=== PATIENT | female | born 1945 | race Asian ===

== ENCOUNTER 2016-10-18 08:41 | Emergency (ER) | payer OTHER ==
[~2016-10-18] VITALS: Ht 152.4 cm; Wt 50.0 kg
[~2016-10-18 08:41] MED LIST: AMLO-145 PO; BENA10TA48 PO; CLOP75TA27 PO; METF500T4 PO; OMEP20CA16 PO; ONDA4TAB14 PO; RANI25TA PO; SIMV5TAB50 PO
[2016-10-18 08:43] VITALS: Ht 152.4 cm; Wt 50.0 kg
[2016-10-18] MEDS ORDERED: morphine 4 MG/ML VIAL IV STA (09:01)
[2016-10-18] MEDS ORDERED: ONDANSETRON 4 MG INJ IV STA (09:01)
[2016-10-18 09:22] LABS: ADD SCAN DIFF NO
[2016-10-18 09:27] LABS: ADD UMIC YES; BASOPHILS % 0.2 % (0.0-2.0); EOSINOPHILS # 0.1 10^3/ul (0.0-0.5); EOSINOPHILS % 1.6 % (0.0-7.0); HEMOGLOBIN 14.4 g/dl (12.0-16.0); LYMPHOCYTES # 2.7 10^3/ul (0.8-2.9); LYMPHOCYTES % 42.7 % (15.0-51.0); MEAN CORPUSCULAR HEMOGLOBIN 30.4 pg (29.0-33.0); MEAN CORPUSCULAR HGB CONC 34.3 g/dl (32.0-37.0); MEAN CORPUSCULAR VOLUME 88.8 fl (82.0-101.0); MEAN PLATELET VOLUME 9.1 fl (7.4-10.4); MONOCYTE # 0.4 10^3/ul (0.3-0.9); MONOCYTES % 6.3 % (0.0-11.0); NEUTROPHIL # 3.1 10^3/ul (1.6-7.5); NEUTROPHILS % 48.9 % (39.0-77.0); PLATELET COUNT 334 10^3/UL (140-415); RED BLOOD COUNT 4.73 10^6/ul (4.20-5.40); RED CELL DISTRIBUTION WIDTH 12.9 % (11.5-14.5); UR ASCORBIC ACID NEGATIVE (NEGATIVE); UR BILIRUBIN (Dip) NEGATIVE (NEGATIVE); UR BLOOD (Dip) 2+ mg/dL (NEGATIVE); UR CLARITY CLEAR (CLEAR); UR COLOR COLORLESS (YELLOW); UR GLUCOSE (Dip) NEGATIVE (NEGATIVE); UR KETONES (Dip) NEGATIVE (NEGATIVE); UR LEUKOCYTE ESTERASE (Dip) NEGATIVE Leu/ul (NEGATIVE); UR NITRITE (Dip) NEGATIVE (NEGATIVE); UR RBC 1 /HPF (0-5); UR SPECIFIC GRAVITY (Dip) 1.004 (1.003-1.030); UR TOTAL PROTEIN (Dip) NEGATIVE (NEGATIVE); UR UROBILINOGEN (Dip) NEGATIVE (NEGATIVE); WHITE BLOOD COUNT 6.3 10^3/ul (4.8-10.8)
[2016-10-18] MEDS ORDERED: PANTOPRAZOLE 40 MG INJ IV ONE (09:30)
[2016-10-18] MEDS ORDERED: GABA100C14 PO (09:37)
[2016-10-18 09:47] LABS: ALANINE AMINOTRANSFERASE 27 IU/L (13-69); ALBUMIN 5.3 g/dl (3.3-4.9); ALBUMIN/GLOBULIN RATIO 1.55; ALKALINE PHOSPHATASE 110 IU/L (42-121); ANION GAP 24 (8-16); ASPARTATE AMINO TRANSFERASE 28 IU/L (15-46); BILIRUBIN,INDIRECT 0.1 mg/dl (0-1.1); BILIRUBIN,TOTAL 0.1 mg/dl (0.2-1.3); BLOOD UREA NITROGEN 8 mg/dl (7-20); CALCIUM 10.2 mg/dl (8.4-10.2); CARBON DIOXIDE 24 mmol/L (21-31); CHLORIDE 100 mmol/L (97-110); CREATININE 0.63 mg/dl (0.44-1.00); GLUCOSE 158 mg/dl (70-220); POTASSIUM 3.4 mmol/L (3.5-5.1); SODIUM 145 mmol/L (135-144); TOTAL PROTEIN 8.7 g/dl (6.1-8.1)
--- NOTE | 2016-10-18 10:04 | RADRPT ---
PROCEDURE: US Abdomen Limited . CLINICAL INDICATION: Abdominal pain TECHNIQUE: Multiple real-time images were acquired of the patient's right upper quadrant abdomen u tilizing a high resolution transducer. COMPARISON: None FINDINGS: The liver measures 13.1 cm and demonstrates a normal echogenicity. Simple-appearing cysts are identi fied in the liver. The largest measures up to approximately 3.2 cm in the right liver. The gallbla dder has been removed. The common bile duct measures 9.4 mm in diameter. The visualized portions of the proximal pancreas are unremarkable. The tail of the pancreas is not well visualized. Antegrade flow is seen in the portal vein. Right kidney measures 9.5 cm. Right kidney demonstrates a normal echogenicity. No hydronephrosis, masses or stones are noted. IMPRESSION: Simple-appearing liver cysts. Status post cholecystectomy. Common bile duct that measures at the upper limit of normal after cholecystectomy. Tail of the pancreas not well visualized. If characterization of this structure is needed repeat exa m or CT/MRI is recommended. RPTAT: AA .Scott Arenas MD, Date Time Electronically viewed and signed by .Scott Arenas MD, on 10/18/2016 10:04 .P/
[2016-10-18 10:10] LABS: TROPONIN-I < 0.012 ng/ml (0.00-0.12)
--- NOTE | 2016-10-18 10:11 | RADRPT ---
PROCEDURE: CT Abdomen and Pelvis without contrast. CLINICAL INDICATION: Abdominal pain TECHNIQUE: CT scan of the abdomen and pelvis without contrast was performed on a multidetector hig h-resolution CT scanner. The patient was scanned without intravenous contrast. Coronal and sagittal reformatted images were obtained from the axial source images. Images were reviewed on a high-resol [employer] PACS workstation. The total exam CTDI equals 5.38 mGy and the total exam DLP equals 251.92 mGy -cm. One or more of the following dose reduction techniques were used: Automated exposure control. Adjustment of the mA and/or kV according to patient size. Use of iterative reconstruction technique. COMPARISON: CT abdomen and pelvis 01/31/2016 FINDINGS: CT abdomen: The lung bases are remarkable for focal bronchiectasis in the lower lingular segment. The heart siz e is normal, without pericardial thickening or effusion. There are multiple liver cysts in both hepatic lobes. The spleen is normal in size and homogeneous i n density. The stomach is partially collapsed, but is grossly unremarkable. The pancreas as visual ized is normal. The gallbladder is surgically absent. There is no evidence for biliary dilatation. The adrenal glands are symmetric and normal. The kidneys are symmetrically unremarkable as well. No renal calculus or obstructive uropathy or mass lesion is seen. The aorta is of normal caliber. Aortic vascular calcifications are present. There is no retroperit boswell lymphadenopathy. The chloe hepatis region is clear. There are scattered diverticula in the l eft colon without evidence of acute diverticulitis. CT pelvis: The small bowel loops situated within the pelvis are unremarkable. There is a normal appendix. The u terus is absent. The pelvic sidewalls and inguinal regions are clear. The sigmoid colon and rectum are remarkable for sigmoid diverticulosis. No mass, lymphadenopathy, or free fluid is seen. No ac mary grace inflammation is seen. The surrounding osseous structures are remarkable for degenerative spondy losis of the spine. No osteolytic or osteoblastic lesion is detected. IMPRESSION: 1. No mass, lymphadenopathy, or focal acute inflammatory process is identified. 2. Scattered diverticula in the left colon without evidence of acute diverticulitis. 3. Normal appendix. 4. Status post cholecystectomy. No biliary ductal dilatation. 5. Multiple liver cysts. 6. Focal bronchiectasis in the lower lingular segment. RPTAT: BB .Charly Solis MD, MD Date Time Electronically viewed and signed by .Charly Solis MD, MD on 10/18/2016 10:11 .O/
[2016-10-18] MEDS ORDERED: ONDA4TAB14 PO (10:32)
[2016-10-18] MEDS ORDERED: PANT40TA3 PO (10:32)
[2016-10-18] MEDS ORDERED: HYDR-902 PO (10:32)
[2016-10-18 10:50] VITALS: BP 135/83; PULSE 60; RESP 28
--- NOTE | 2016-10-18 13:10 | ERD ---
ER Documentation Chief Complaint Date/Time DATE: 10/18/16 TIME: 13:08 Chief Complaint ap x 1 week HPI Patient is a 71-year-old female with hypertension and diabetes who presents with abdominal pain. The patient has a diffuse abdominal pain as well as a dry throat. The symptoms started 1 week ago. The pain comes and goes. She tried omeprazole. Upon review of old medical records this is the patient's seventh visit to the ER since 2012. The pain is sharp in nature. ROS All systems reviewed and are negative except as per history of present illness. Medications Home Meds Active Scripts Ondansetron (Ondansetron Odt) 4 Mg Tab.rapdis, 4 MG PO Q6H Y for NAUSEA AND/OR VOMITING, #10 TAB Prov:MEG TAVAREZ MD 10/18/16 Hydrocodone/Acetaminophen (Bryant 10-325 Tablet) 1 Each Tablet, 1 TAB PO Q6H Y for PAIN, #7 TAB Prov:MEG TAVAREZ MD 10/18/16 Pantoprazole* (Protonix*) 40 Mg Tablet.dr, 40 MG PO DAILY, #20 TAB Prov:MEG TAVRAEZ MD 10/18/16 Reported Medications Gabapentin* (Gabapentin*) 100 Mg Capsule, 200 MG PO QHS, #90 CAP 10/18/16 Omeprazole* (Omeprazole*) 20 Mg Capsule.dr, 20 MG PO DAILY, #30 CAP 01/31/16 Metformin* (Glucophage*) 500 Mg Tab, 500 MG PO BID 03/20/12 Benazepril Hcl* (Benazepril Hcl*) 10 Mg Tablet, 10 MG PO DAILY 03/20/12 Amlodipine Besylate* (Amlodipine Besylate*) 5 Mg Tablet, 5 MG PO DAILY 03/20/12 Discontinued Reported Medications Simvastatin* (Simvastatin*) 5 Mg Tablet, PO HS, TAB 02/17/15 Clopidogrel Bisulfate (Clopidogrel) 75 Mg Tablet, 75 MG PO DAILY, TAB 02/17/15 Ranitidine Hcl (Zantac 25) 25 Mg Tablet.eff, 300 MG PO HS 03/20/13 Discontinued Scripts Ondansetron (Ondansetron Odt) 4 Mg Tab.rapdis, 4 MG PO Q6H Y for NAUSEA AND/OR VOMITING, #20 TAB Prov:CHARLINE PATEL MD 01/31/16 Allergies Allergies: Coded Allergies: No Known Allergies (Verified Allergy, Unknown, 01/31/16) PMhx/Soc History of Surgery: Yes (Hysterectomy, CHOLECYSTECOMY) Anesthesia Reaction: No Hx Neurological Disorder: No Hx Respiratory Disorders: No Hx Cardiac Disorders: Yes (Hypertension, DMII) Hx Psychiatric Problems: No Hx Miscellaneous Medical Probl: Yes (GERD) Hx Alcohol Use: No Hx Substance Use: No Hx Tobacco Use: No Smoking Status: Never smoker FmHx Family History: diabetes Physical Exam Vitals Vital Signs Date Time Temp Pulse Resp B/P Pulse Ox O2 Delivery O2 Flow Rate FiO2 10/18/16 10:50 60 28 135/83 99 Room Air 10/18/16 09:37 69 22 148/88 100 Room Air 10/18/16 08:43 97.8 82 20 164/89 99 Physical Exam Const: Mild distress secondary to pain Head: Atraumatic Eyes: Normal Conjunctiva ENT: Normal External Ears, Nose and Mouth. Neck: Full range of motion..~ No meningismus. Resp: Clear to auscultation bilaterally Cardio: Regular rate and rhythm, no murmurs Abd: Midepigastric tenderness to palpation without rebound or guarding Skin: No petechiae or rashes Back: No midline or flank tenderness Ext: No cyanosis, or edema Neur: Awake and alert Psych: Normal Mood and Affect Result Diagram: 10/18/16 0911 10/18/16 0911 Results 24 hrs Laboratory Tests Test 10/18/16 09:11 White Blood Count 6.310^3/ul Red Blood Count 4.7310^6/ul Hemoglobin 14.4g/dl Hematocrit 42.0% Mean Corpuscular Volume 88.8fl Mean Corpuscular Hemoglobin 30.4pg Mean Corpuscular Hemoglobin Concent 34.3g/dl Red Cell Distribution Width 12.9% Platelet Count 41225^3/UL Mean Platelet Volume 9.1fl Neutrophils % 48.9% Lymphocytes % 42.7% Monocytes % 6.3% Eosinophils % 1.6% Basophils % 0.2% Nucleated Red Blood Cells % 0.0/100WBC Neutrophils # 3.110^3/ul Lymphocytes # 2.710^3/ul Monocytes # 0.410^3/ul Eosinophils # 0.110^3/ul Basophils # 0.010^3/ul Nucleated Red Blood Cells # 0.010^3/ul Urine Color COLORLESS Urine Clarity CLEAR Urine pH 6.0 Urine Specific [place] 1.004 Urine Ketones NEGATIVEmg/dL Urine Nitrite NEGATIVEmg/dL Urine Bilirubin NEGATIVEmg/dL Urine Urobilinogen NEGATIVEmg/dL Urine Leukocyte Esterase NEGATIVELeu/ul Urine Microscopic RBC 1/HPF Urine Microscopic WBC 0/HPF Urine Hemoglobin 2+mg/dL Urine Glucose NEGATIVEmg/dL Urine Total Protein NEGATIVEmg/dl Sodium Level 145mmol/L Potassium Level 3.4mmol/L Chloride Level 100mmol/L Carbon Dioxide Level 24mmol/L Anion Gap 24 Blood Urea Nitrogen 8mg/dl Creatinine 0.63mg/dl Glucose Level 158mg/dl Calcium Level 10.2mg/dl Total Bilirubin 0.1mg/dl Direct Bilirubin 0.00mg/dl Indirect Bilirubin 0.1mg/dl Aspartate Amino Transf (AST/SGOT) 28IU/L Alanine Aminotransferase (ALT/SGPT) 27IU/L Alkaline Phosphatase 110IU/L Troponin I < 0.012ng/ml Total Protein 8.7g/dl Albumin 5.3g/dl Globulin 3.40g/dl Albumin/Globulin Ratio 1.55 Lipase 164U/L Current Medications Medications (Trade) Dose Ordered Sig/Minoo Route PRN Reason Start Time Stop Time Status Last Admin Dose Admin Morphine Sulfate (morphine) 4 mg ONCE STAT IV 10/18/16 09:01 10/18/16 09:03 DC 10/18/16 09:31 Ondansetron HCl (Zofran Inj) 4 mg ONCE STAT IV 10/18/16 09:01 10/18/16 09:03 DC 10/18/16 09:25 Pantoprazole (Protonix Iv) 40 mg ONCE ONCE IV 10/18/16 09:30 10/18/16 09:31 DC 10/18/16 09:32 Procedures/MDM EKG read by me: Rate/Rhythm: Regular rate and rhythm at a normal rate Intervals: Normal Impression: No evidence of ischemia or arrhythmia PROCEDURE: US Abdomen Limited . CLINICAL INDICATION: Abdominal pain TECHNIQUE: Multiple real-time images were acquired of the patient's right upper quadrant abdomen utilizing a high resolution transducer. COMPARISON: None FINDINGS: The liver measures 13.1 cm and demonstrates a normal echogenicity. Simple- appearing cysts are identified in the liver. The largest measures up to approximately 3.2 cm in the right liver. The gallbladder has been removed. The common bile duct measures 9.4 mm in diameter. The visualized portions of the proximal pancreas are unremarkable. The tail of the pancreas is not well visualized. Antegrade flow is seen in the portal vein. Right kidney measures 9.5 cm. Right kidney demonstrates a normal echogenicity. No hydronephrosis, masses or stones are noted. IMPRESSION: Simple-appearing liver cysts. Status post cholecystectomy. Common bile duct that measures at the upper limit of normal after cholecystectomy. Tail of the pancreas not well visualized. If characterization of this structure is needed repeat exam or CT/MRI is recommended. RPTAT: AA .Scott Arenas MD, MD Date Time Electronically viewed and signed by .Scott Arenas MD, on 10/18/2016 10:04 PROCEDURE: CT Abdomen and Pelvis without contrast. CLINICAL INDICATION: Abdominal pain TECHNIQUE: CT scan of the abdomen and pelvis without contrast was performed on a multidetector high-resolution CT scanner. The patient was scanned without intravenous contrast. Coronal and sagittal reformatted images were obtained from the axial source images. Images were reviewed on a high-resolution PACS workstation. The total exam CTDI equals 5.38 mGy and the total exam DLP equals 251.92 mGy-cm. One or more of the following dose reduction techniques were used: Automated exposure control. Adjustment of the mA and/or kV according to patient size. Use of iterative reconstruction technique. COMPARISON: CT abdomen and pelvis 01/31/2016 FINDINGS: CT abdomen: The lung bases are remarkable for focal bronchiectasis in the lower lingular segment. The heart size is normal, without pericardial thickening or effusion. There are multiple liver cysts in both hepatic lobes. The spleen is normal in size and homogeneous in density. The stomach is partially collapsed, but is grossly unremarkable. The pancreas as visualized is normal. The gallbladder is surgically absent. There is no evidence for biliary dilatation. The adrenal glands are symmetric and normal. The kidneys are symmetrically unremarkable as well. No renal calculus or obstructive uropathy or mass lesion is seen. The aorta is of normal caliber. Aortic vascular calcifications are present. There is no retroperitoneal lymphadenopathy. The chloe hepatis region is clear. There are scattered diverticula in the left colon without evidence of acute diverticulitis. CT pelvis: The small bowel loops situated within the pelvis are unremarkable. There is a normal appendix. The uterus is absent. The pelvic sidewalls and inguinal regions are clear. The sigmoid colon and rectum are remarkable for sigmoid diverticulosis. No mass, lymphadenopathy, or free fluid is seen. No acute inflammation is seen. The surrounding osseous structures are remarkable for degenerative spondylosis of the spine. No osteolytic or osteoblastic lesion is detected. IMPRESSION: 1. No mass, lymphadenopathy, or focal acute inflammatory process is identified. 2. Scattered diverticula in the left colon without evidence of acute diverticulitis. 3. Normal appendix. 4. Status post cholecystectomy. No biliary ductal dilatation. 5. Multiple liver cysts. 6. Focal bronchiectasis in the lower lingular segment. RPTAT: BB .Charly Solis MD, MD Date Time Electronically viewed and signed by .Charly Solis MD, MD on 10/18/2016 10:11 Patient is a 71-year-old female presents with abdominal pain. She had a full workup including laboratory studies, EKG, CT scan, and ultrasound of the gallbladder. The patient has no obvious surgical process. Laboratory studies are basically normal. CT scan shows no surgical process. Ultrasound shows no surgical process. At this point I believe outpatient management is appropriate. The patient will need to follow-up closely with a primary doctor within 24 hours and can return if symptoms worsen. The patient understands the plan is okay for discharge at this time. At this point I doubt appendicitis, cholecystitis, pancreatitis, or bowel obstruction. Departure Diagnosis: Primary Impression: Abdominal pain Abdominal location: generalized Qualified Code: R10.84 - Generalized abdominal pain Condition: Stable Patient Instructions: Abdominal Pain Referrals: GREGORIO MABRY (PCP) Additional Instructions: FOLLOW UP WITH YOUR PRIMARY CARE PHYSICIAN TOMORROW.Return to this facility if you are not improving as expected. MEG TAVAREZ MD Oct 18, 2016 13:10
== END 2016-10-18 10:51 | disposition home or self-care (01) ==
LOC: E/R 08:41
DX: R10.84 Generalized abdominal pain (principal); I10 Essential (primary) hypertension; E11.9 Type 2 diabetes mellitus without complications; Z79.84 Long term (current) use of oral hypoglycemic drugs
CPT/HCPCS: 36415; 74176; 76705; 80053; 81001; 83690; 84484; 85025; 93005; 96374; 96375; 99285; C9113; J2270; J2405

== ENCOUNTER 2016-11-09 08:57 | Emergency (ER) | payer OTHER ==
[~2016-11-09] VITALS: Ht 152.4 cm; Wt 49.0 kg
[~2016-11-09 08:57] MED LIST changes: -CLOP75TA27 PO; +GABA100C14 PO; +HYDR-902 PO; +PANT40TA3 PO; -RANI25TA PO; -SIMV5TAB50 PO
[2016-11-09 09:00] VITALS: Ht 152.4 cm; Wt 49.0 kg
[2016-11-09] MEDS ORDERED: FAMOTIDINE 20 MG INJ IV STA (09:29)
[2016-11-09] MEDS ORDERED: LIDOCAINE/MYLANTA 40 ML BTL PO STA (09:29)
[2016-11-09] MEDS ORDERED: SOD CHLORIDE 0.9% 500 ML IV STA (09:29)
--- NOTE | 2016-11-09 09:59 | RADRPT ---
PROCEDURE: XR Chest. CLINICAL INDICATION: Abdominal pain TECHNIQUE: Single frontal view of the chest was obtained COMPARISON: 08/29/13 FINDINGS: The heart and mediastinum are within normal limits. The lungs are clear. There is no pleural effusion or pneumothorax. RPTAT: AA IMPRESSION: No acute disease. .Kashif Kaiser MD, MD Date Time Electronically viewed and signed by .Kashif Kaiser MD, on 11/09/2016 09:59 .S/
[2016-11-09 10:04] LABS: BASOPHILS % 0.4 % (0.0-2.0); EOSINOPHILS # 0.1 10^3/ul (0.0-0.5); EOSINOPHILS % 1.8 % (0.0-7.0); HEMATOCRIT 41.8 % (37.0-47.0); HEMOGLOBIN 14.4 g/dl (12.0-16.0); LYMPHOCYTES # 2.3 10^3/ul (0.8-2.9); MEAN CORPUSCULAR HEMOGLOBIN 30.6 pg (29.0-33.0); MEAN CORPUSCULAR HGB CONC 34.4 g/dl (32.0-37.0); MEAN CORPUSCULAR VOLUME 88.7 fl (82.0-101.0); MEAN PLATELET VOLUME 9.1 fl (7.4-10.4); MONOCYTE # 0.4 10^3/ul (0.3-0.9); MONOCYTES % 8.2 % (0.0-11.0); NEUTROPHIL # 2.2 10^3/ul (1.6-7.5); NEUTROPHILS % 44.2 % (39.0-77.0); PLATELET COUNT 331 10^3/UL (140-415); RED BLOOD COUNT 4.71 10^6/ul (4.20-5.40); RED CELL DISTRIBUTION WIDTH 12.7 % (11.5-14.5)
[2016-11-09 10:18] LABS: INR 0.9; PROTIME 12.1 Sec (12.2-14.2); PT RATIO 0.9
[2016-11-09 10:19] LABS: PARTIAL THROMBOPLASTIN TIME 27.4 Sec (25.0-35.0)
[2016-11-09 10:22] LABS: ALANINE AMINOTRANSFERASE 26 IU/L (13-69); ALBUMIN/GLOBULIN RATIO 1.42; ALKALINE PHOSPHATASE 100 IU/L (42-121); ANION GAP 26 (8-16); ASPARTATE AMINO TRANSFERASE 27 IU/L (15-46); BILIRUBIN,INDIRECT 0.2 mg/dl (0-1.1); BILIRUBIN,TOTAL 0.2 mg/dl (0.2-1.3); BLOOD UREA NITROGEN 8 mg/dl (7-20); CARBON DIOXIDE 21 mmol/L (21-31); CHLORIDE 101 mmol/L (97-110); CREATININE 0.65 mg/dl (0.44-1.00); GLUCOSE 210 mg/dl (70-220); POTASSIUM 3.6 mmol/L (3.5-5.1); SODIUM 144 mmol/L (135-144); TOTAL PROTEIN 8.5 g/dl (6.1-8.1)
[2016-11-09 10:36] LABS: TROPONIN-I < 0.012 ng/ml (0.00-0.12)
--- NOTE | 2016-11-09 10:45 | RADRPT ---
PROCEDURE: CT Abdomen and Pelvis without contrast. CLINICAL INDICATION: Abdominal pain. TECHNIQUE: CT scan of the abdomen and pelvis without contrast was performed on a multidetector hig h-resolution CT scanner. The patient was scanned without intravenous contrast. Coronal and sagittal reformatted images were obtained from the axial source images. Images were reviewed on a high-resol [employer] PACS workstation. One or more of the following dose reduction techniques were used: Automated exposure control, adjustment of the mA and/or kV according to patient size, use of iterative recon struction technique. The total exam CTDI equals 4.93 mGy and the total exam DLP equals 249.13 mGy-c m. COMPARISON: CT from 10/18/2016 FINDINGS: CT abdomen: The lung bases are remarkable for focal bronchiectasis in the lower lingular segment. The heart size is normal, without pericardial thickening or effusion. There are multiple liver cysts in both hepatic lobes. The spleen is normal in size and homogeneous i n density. The stomach is partially collapsed, but is grossly unremarkable. The pancreas as visualiz ed is normal. The gallbladder is surgically absent. There is no evidence for biliary dilatation. The adrenal glands are symmetric and normal. The kidneys are symmetrically unremarkable as well. No socrates al calculus or obstructive uropathy or mass lesion is seen. The aorta is of normal caliber. Aortic vascular calcifications are present. There is no retroperiton eal lymphadenopathy. The chloe hepatis region is clear. CT pelvis: The small bowel loops situated within the pelvis are unremarkable. The appendix is prominent measuri ng up to 9 mm in diameter, previously 7 mm. Small amounts of air are seen proximally within the mason endix. There is no significant periappendiceal fat stranding. No appendicoliths are seen. The sig moid colon and rectum are unremarkable. The uterus is absent. The pelvic sidewalls and inguinal regions are clear. No mass, lymphadenopathy , or free fluid is seen. No acute inflammation is seen. The surrounding osseous structures are remar kable for degenerative spondylosis of the spine. No osteolytic or osteoblastic lesion is detected. IMPRESSION: 1. Prominent appendicial diameter without additional evidence of acute appendicitis. The findings may represent mild/early appendicitis. Correlate clinically. 2. Status post cholecystectomy. No biliary ductal dilatation. 3. Multiple liver cysts. 4. 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 RPTAT: AA .David Suazo MD, Date Time Electronically viewed and signed by .David Suazo MD, on 11/09/2016 10:45 .A/
[2016-11-09] MEDS ORDERED: FAMO-96 PO (11:48)
--- NOTE | 2016-11-09 11:53 | ERD ---
ER Documentation Chief Complaint Date/Time DATE: 11/09/16 TIME: 11:50 Chief Complaint abd pain x 1 week with nausea HPI This is a 71-year-old female who is a very poor historian. The patient describes approximately 1 week of abdominal discomfort that starts in or left lower quadrant and radiates to the epigastrium and is burning and occasionally postprandial. The patient has mild nausea but no chest pain no exertional symptoms no vomiting or constipation. She denies significant abdominal pain only mild at this time. Prior history of cholecystectomy. After further conversation the patient states that she may have had this pain for much longer approximately 1 year. Patient also notes cramping in her feet for approximately the same timeframe. ROS All systems reviewed and are negative except as per history of present illness. Medications Home Meds Active Scripts Famotidine* (Pepcid*) 20 Mg Tablet, 20 MG PO BID Y for abdominal pain, #60 TAB Prov:CHARLINE PATEL MD 11/09/16 Reported Medications Gabapentin* (Gabapentin*) 100 Mg Capsule, 200 MG PO QHS, #90 CAP 10/18/16 Omeprazole* (Omeprazole*) 20 Mg Capsule.dr, 20 MG PO DAILY, #30 CAP 01/31/16 Metformin* (Glucophage*) 500 Mg Tab, 500 MG PO BID 03/20/12 Benazepril Hcl* (Benazepril Hcl*) 10 Mg Tablet, 10 MG PO DAILY 03/20/12 Amlodipine Besylate* (Amlodipine Besylate*) 5 Mg Tablet, 5 MG PO DAILY 03/20/12 Discontinued Scripts Ondansetron (Ondansetron Odt) 4 Mg Tab.rapdis, 4 MG PO Q6H Y for NAUSEA AND/OR VOMITING, #10 TAB Prov:MEG TAVAREZ MD 10/18/16 Hydrocodone/Acetaminophen ([place] 10-325 Tablet) 1 Each Tablet, 1 TAB PO Q6H Y for PAIN, #7 TAB Prov:MEG TAVAREZ MD 10/18/16 Pantoprazole* (Protonix*) 40 Mg Tablet.dr, 40 MG PO DAILY, #20 TAB Prov:MEG TAVAREZ MD 10/18/16 Allergies Allergies: Coded Allergies: No Known Allergies (Verified Allergy, Unknown, 11/09/16) PMhx/Soc History of Surgery: Yes (Hysterectomy, CHOLECYSTECOMY) Anesthesia Reaction: No Hx Neurological Disorder: No Hx Respiratory Disorders: No Hx Cardiac Disorders: Yes (Hypertension, DMII) Hx Psychiatric Problems: No Hx Miscellaneous Medical Probl: Yes (GERD) Hx Alcohol Use: No Hx Substance Use: No Hx Tobacco Use: No Smoking Status: Never smoker FmHx Family History: No diabetes Physical Exam Vitals Vital Signs Date Time Temp Pulse Resp B/P Pulse Ox O2 Delivery O2 Flow Rate FiO2 11/09/16 09:00 98.6 86 20 156/89 98 Physical Exam General: Well developed, well nourished, no acute distress Head: Normocephalic, atraumatic. Eyes: Pupils equally reactive, EOM intact ENT: Moist mucous membranes Neck: Supple, no lymphadenopathy Respiratory: Lungs clear bilaterally, no distress Cardiovascular: RRR, no murmurs, rubs, or gallops Abdominal: Soft, non-tender, non-distended, no peritoneal signs, negative [place] sign, no tenderness to McBurney's point, no pulsatile mass : Deferred MSK: No edema, no unilateral swelling, 5/5 strength Neurologic: Alert and oriented, moving all extremities, normal speech, no focal weakness, no cerebellar signs Skin: No rash Psych: Normal mood Result Diagram: 11/09/1643 11/09/1643 Results 24 hrs Laboratory Tests Test 11/09/16 09:43 White Blood Count 5.010^3/ul Red Blood Count 4.7110^6/ul Hemoglobin 14.4g/dl Hematocrit 41.8% Mean Corpuscular Volume 88.7fl Mean Corpuscular Hemoglobin 30.6pg Mean Corpuscular Hemoglobin Concent 34.4g/dl Red Cell Distribution Width 12.7% Platelet Count 12953^3/UL Mean Platelet Volume 9.1fl Neutrophils % 44.2% Lymphocytes % 45.0% Monocytes % 8.2% Eosinophils % 1.8% Basophils % 0.4% Nucleated Red Blood Cells % 0.0/100WBC Neutrophils # 2.210^3/ul Lymphocytes # 2.310^3/ul Monocytes # 0.410^3/ul Eosinophils # 0.110^3/ul Basophils # 0.010^3/ul Nucleated Red Blood Cells # 0.010^3/ul Prothrombin Time 12.1Sec Prothrombin Time Ratio 0.9 INR International Normalized Ratio 0.90 Activated Partial Thromboplast Time 27.4Sec Sodium Level 144mmol/L Potassium Level 3.6mmol/L Chloride Level 101mmol/L Carbon Dioxide Level 21mmol/L Anion Gap 26 Blood Urea Nitrogen 8mg/dl Creatinine 0.65mg/dl Glucose Level 210mg/dl Calcium Level 10.0mg/dl Total Bilirubin 0.2mg/dl Direct Bilirubin 0.00mg/dl Indirect Bilirubin 0.2mg/dl Aspartate Amino Transf (AST/SGOT) 27IU/L Alanine Aminotransferase (ALT/SGPT) 26IU/L Alkaline Phosphatase 100IU/L Troponin I < 0.012ng/ml Total Protein 8.5g/dl Albumin 5.0g/dl Globulin 3.50g/dl Albumin/Globulin Ratio 1.42 Lipase 138U/L Current Medications Medications (Trade) Dose Ordered Sig/Minoo Route PRN Reason Start Time Stop Time Status Last Admin Dose Admin Sodium Chloride (NS) 500 ml @ 500 mls/hr Q1H STAT IV 11/09/16 09:29 11/09/16 10:28 DC 11/09/16 10:24 Famotidine (Pepcid Iv) 20 mg ONCE STAT IV 11/09/16 09:29 11/09/16 09:33 DC 11/09/16 10:22 Miscellaneous Medication (Gi Cocktail (2)) 40 ml ONCE STAT PO 11/09/16 09:29 11/09/16 09:33 DC 11/09/16 10:23 Procedures/MDM EKG, MONITORS, & DIAGNOSTIC IMAGING: Chest x-ray: I reviewed and interpreted a 1 view of the chest Mediastinum: No enlargement Cardiac silhouette: No cardiomegaly Airspace: Clear lung whalen bilaterally without evidence of pneumothorax Bones: No evidence of fracture EKG: I reviewed and interpreted a 12-lead EKG. Rhythm: Normal sinus rhythm Ectopy: None Intervals: No abnormalities ST segments: No elevations or depressions T waves: No contiguous inversions ct a/p IMPRESSION: 1. Prominent appendicial diameter without additional evidence of acute appendicitis. The findings may represent mild/early appendicitis. Correlate clinically. 2. Status post cholecystectomy. No biliary ductal dilatation. 3. Multiple liver cysts. 4. Focal bronchiectasis and scarring in the lower lingular segment, may be secondary to repeated old chronic infections or lady [place] syndrome (MAC infection). LAB INTERPRETATION: No leukocytosis, no evidence of urinary tract infection MEDICAL DECISION MAKING: The patient presents with abdominal pain for approximately 1 year and foot cramping for approximately 1 year. Unclear etiology at this point, given her age I believe CT imaging would be appropriate. Given the patient's postprandial symptoms consider possible Astra process such as reflux. The patient has had a colonoscopy several years ago that was stated to be normal. ER COURSE: The patient's CT shows a slightly dilated appendix but the patient has no focal tenderness no leukocytosis and no signs clinically of acute appendicitis. I do not believe this is consistent with appendicitis. Patient was given a GI cocktail with improved symptoms. The patient is safe for discharge. Outpatient follow-up is strongly recommended. I kept the patient and/or family informed of laboratory and diagnostic imaging results throughout the emergency room course. DISPOSITION PLAN: We discussed follow up with the patient's primary care doctor within 24 to 48 hours as needed. We also discussed return to the emergency room for worsening symptoms or worsening condition. Outpatient referral: [None required] Discharge Medications: Pepcid Departure Diagnosis: Primary Impression: Abdominal pain Abdominal location: generalized Qualified Code: R10.84 - Generalized abdominal pain Condition: Stable Patient Instructions: Abdominal Pain Additional Instructions: Call your primary care doctor TOMORROW for an appointment during the next 1 WEEK.Tell the commissary officer that you were referred from this facility.See the doctor sooner or return here if your condition worsens before your appointment time. CHARLINE PATEL MD Nov 09, 2016 11:53
[2016-11-09 11:57] LABS: ADD UMIC YES; UR ASCORBIC ACID NEGATIVE (NEGATIVE); UR BILIRUBIN (Dip) NEGATIVE (NEGATIVE); UR BLOOD (Dip) 1+ mg/dL (NEGATIVE); UR CLARITY CLEAR (CLEAR); UR COLOR COLORLESS (YELLOW); UR GLUCOSE (Dip) NEGATIVE (NEGATIVE); UR KETONES (Dip) NEGATIVE (NEGATIVE); UR LEUKOCYTE ESTERASE (Dip) NEGATIVE Leu/ul (NEGATIVE); UR NITRITE (Dip) NEGATIVE (NEGATIVE); UR RBC 1 /HPF (0-5); UR SPECIFIC GRAVITY (Dip) 1.003 (1.003-1.030); UR TOTAL PROTEIN (Dip) NEGATIVE (NEGATIVE); UR UROBILINOGEN (Dip) NEGATIVE (NEGATIVE)
[2016-11-09 12:38] VITALS: BP 113/68; PULSE 70; RESP 19; TEMP 97.6
== END 2016-11-09 12:47 | disposition home or self-care (01) ==
LOC: E/R 08:57
DX: R10.84 Generalized abdominal pain (principal); I10 Essential (primary) hypertension; E11.9 Type 2 diabetes mellitus without complications; Z79.84 Long term (current) use of oral hypoglycemic drugs
CPT/HCPCS: 36415; 71010; 74176; 80053; 81001; 83690; 84484; 85025; 85610; 85730; 93005; 96374; 99285; J7040

== ENCOUNTER 2016-12-14 10:21 | Emergency (ER) | payer OTHER ==
[~2016-12-14] VITALS: Ht 152.4 cm; Wt 49.0 kg
[~2016-12-14 10:21] MED LIST changes: +FAMO-96 PO; -HYDR-902 PO; -ONDA4TAB14 PO; -PANT40TA3 PO
[2016-12-14 10:31] VITALS: Ht 152.4 cm; Wt 49.0 kg
[2016-12-14] MEDS ORDERED: morphine 4 MG/ML VIAL IV STA (12:46)
[2016-12-14] MEDS ORDERED: ONDANSETRON 4 MG INJ IV STA (12:46)
[2016-12-14] MEDS ORDERED: SOD CHLORIDE 0.9% 1,000 ML IV STA (12:46)
[2016-12-14 13:40] LABS: BASOPHILS % 0.5 % (0.0-2.0); EOSINOPHILS # 0.1 10^3/ul (0.0-0.5); EOSINOPHILS % 1.4 % (0.0-7.0); HEMATOCRIT 39.9 % (37.0-47.0); HEMOGLOBIN 13.5 g/dl (12.0-16.0); LYMPHOCYTES # 2.6 10^3/ul (0.8-2.9); LYMPHOCYTES % 44.4 % (15.0-51.0); MEAN CORPUSCULAR HEMOGLOBIN 30.1 pg (29.0-33.0); MEAN CORPUSCULAR HGB CONC 33.8 g/dl (32.0-37.0); MEAN CORPUSCULAR VOLUME 88.9 fl (82.0-101.0); MEAN PLATELET VOLUME 9.2 fl (7.4-10.4); MONOCYTE # 0.4 10^3/ul (0.3-0.9); MONOCYTES % 7.4 % (0.0-11.0); PLATELET COUNT 313 10^3/UL (140-415); RED BLOOD COUNT 4.49 10^6/ul (4.20-5.40); RED CELL DISTRIBUTION WIDTH 12.5 % (11.5-14.5); WHITE BLOOD COUNT 5.9 10^3/ul (4.8-10.8)
[2016-12-14 13:50] LABS: ADD UMIC YES; UR ASCORBIC ACID NEGATIVE (NEGATIVE); UR BILIRUBIN (Dip) NEGATIVE (NEGATIVE); UR BLOOD (Dip) 1+ mg/dL (NEGATIVE); UR CLARITY CLEAR (CLEAR); UR COLOR COLORLESS (YELLOW); UR GLUCOSE (Dip) NEGATIVE (NEGATIVE); UR KETONES (Dip) NEGATIVE (NEGATIVE); UR LEUKOCYTE ESTERASE (Dip) NEGATIVE Leu/ul (NEGATIVE); UR NITRITE (Dip) NEGATIVE (NEGATIVE); UR RBC 0 /HPF (0-5); UR SPECIFIC GRAVITY (Dip) 1.003 (1.003-1.030); UR TOTAL PROTEIN (Dip) NEGATIVE (NEGATIVE); UR UROBILINOGEN (Dip) NEGATIVE (NEGATIVE)
[2016-12-14 14:12] LABS: ALANINE AMINOTRANSFERASE 28 IU/L (13-69); ALBUMIN 4.5 g/dl (3.3-4.9); ALBUMIN/GLOBULIN RATIO 1.28; ALKALINE PHOSPHATASE 103 IU/L (42-121); ANION GAP 22 (8-16); ASPARTATE AMINO TRANSFERASE 24 IU/L (15-46); BILIRUBIN,INDIRECT 0.1 mg/dl (0-1.1); BILIRUBIN,TOTAL 0.1 mg/dl (0.2-1.3); BLOOD UREA NITROGEN 8 mg/dl (7-20); CALCIUM 9.6 mg/dl (8.4-10.2); CARBON DIOXIDE 24 mmol/L (21-31); CHLORIDE 102 mmol/L (97-110); CREATININE 0.64 mg/dl (0.44-1.00); GLUCOSE 122 mg/dl (70-220); POTASSIUM 3.5 mmol/L (3.5-5.1); SODIUM 144 mmol/L (135-144)
[2016-12-14 14:21] LABS: TROPONIN-I < 0.012 ng/ml (0.00-0.12)
--- NOTE | 2016-12-14 15:02 | RADRPT ---
PROCEDURE: CT Abdomen and Pelvis without contrast. CLINICAL INDICATION: Abdominal pain TECHNIQUE: CT of the abdomen and pelvis was performed on a multi-detector scanner without IV contr ast. Coronal and sagittal images were reformatted from the axial data set. One or more of the foll owing dose reduction techniques were used: automated exposure control, adjustment of the mA and/or k V according to patient size, use of iterative reconstruction technique. CTDI = 5.82 mGy. DLP = 280. 21 mGy-cm. COMPARISON: 11/09/2016 FINDINGS: CT abdomen: The lung bases are clear. The heart size is normal, without pericardial effusion. The liver is fat ty infiltrated. Scattered benign hepatic cysts are noted, stable over time. Gallbladder is surgica lly absent. Biliary tree, pancreas, spleen, adrenal glands and kidneys are unremarkable. No urolit hiasis or obstructive uropathy is identified. Small hiatal hernia. The stomach is otherwise grossl y unremarkable. The aorta is of normal caliber. Aortoiliac atherosclerotic calcifications are present. There is no retroperitoneal lymphadenopathy. The chloe hepatis region is clear. CT pelvis: No bowel obstruction, free intraperitoneal air or abscess is identified. The appendix is well visua lized and normal. There is no diverticulosis, diverticulitis or colitis. Urinary bladder is grossl y unremarkable. Uterus is surgically absent. No pelvic mass, free fluid or lymphadenopathy is iden tified. The surrounding osseous structures are remarkable for mild degenerative enthesopathy of the spine. No osteolytic or osteoblastic lesion is detected. IMPRESSION: 1. Hepatic steatosis is noted. 2. Gallbladder and uterus are surgically absent. 3. Small hiatal hernia is present. 4. Scattered aortoiliac atherosclerotic calcifications are noted. 5. No mass, lymphadenopathy, or focal acute inflammatory process is identified. RPTAT: HH .Carlos Concepcion MD, Date Time Electronically viewed and signed by .Carlos Concepcion MD, MD on 12/14/2016 14:24 .R/
[2016-12-14] MEDS ORDERED: IBUP-1542 PO (15:08)
--- NOTE | 2016-12-14 15:14 | ERD ---
ER Documentation Chief Complaint Date/Time DATE: 12/14/16 TIME: 15:11 Chief Complaint Complains of abdominal pain sent from for eval HPI Patient is a 71-year-old female with diabetes who presents with abdominal pain. She has left lower quadrant abdominal pain which started 3 days ago. The pain has been constant and sharp in nature. She has no fevers. She tried a pain medicine this morning. Upon review of old medical records this patient has had multiple visits to the ER for abdominal pain in the past.. ROS All systems reviewed and are negative except as per history of present illness. Medications Home Meds Active Scripts Ibuprofen* (Motrin*) 600 Mg Tab, 600 MG PO Q8, #30 TAB Prov:MEG TAVAREZ MD 12/14/16 Famotidine* (Pepcid*) 20 Mg Tablet, 20 MG PO BID Y for abdominal pain, #60 TAB Prov:CHARLINE PATEL MD 11/09/16 Reported Medications Gabapentin* (Gabapentin*) 100 Mg Capsule, 200 MG PO QHS, #90 CAP 10/18/16 Omeprazole* (Omeprazole*) 20 Mg Capsule.dr, 20 MG PO DAILY, #30 CAP 01/31/16 Metformin* (Glucophage*) 500 Mg Tab, 500 MG PO BID 03/20/12 Benazepril Hcl* (Benazepril Hcl*) 10 Mg Tablet, 10 MG PO DAILY 03/20/12 Amlodipine Besylate* (Amlodipine Besylate*) 5 Mg Tablet, 5 MG PO DAILY 03/20/12 Allergies Allergies: Coded Allergies: No Known Allergies (Verified Allergy, Unknown, 11/09/16) PMhx/Soc History of Surgery: Yes (Hysterectomy, CHOLECYSTECOMY) Anesthesia Reaction: No Hx Neurological Disorder: No Hx Respiratory Disorders: No Hx Cardiac Disorders: Yes (Hypertension, DMII) Hx Psychiatric Problems: No Hx Miscellaneous Medical Probl: Yes (GERD) Hx Alcohol Use: No Hx Substance Use: No Hx Tobacco Use: No Smoking Status: Never smoker FmHx Family History: diabetes Physical Exam Vitals Vital Signs Date Time Temp Pulse Resp B/P Pulse Ox O2 Delivery O2 Flow Rate FiO2 12/14/16 14:08 69 17 179/62 100 Room Air 12/14/16 10:31 97.8 79 20 137/83 97 Physical Exam Const: Mild distress secondary to pain Head: Atraumatic Eyes: Normal Conjunctiva ENT: Normal External Ears, Nose and Mouth. Neck: Full range of motion..~ No meningismus. Resp: Clear to auscultation bilaterally Cardio: Regular rate and rhythm, no murmurs Abd: Soft, Left lower quadrant abdominal pain without rebound or guarding Skin: No petechiae or rashes Back: No midline or flank tenderness Ext: No cyanosis, or edema Neur: Awake and alert Psych: Normal Mood and Affect Result Diagram: 12/14/16 1330 12/14/16 1330 Results 24 hrs Laboratory Tests Test 12/14/16 13:30 White Blood Count 5.910^3/ul Red Blood Count 4.4910^6/ul Hemoglobin 13.5g/dl Hematocrit 39.9% Mean Corpuscular Volume 88.9fl Mean Corpuscular Hemoglobin 30.1pg Mean Corpuscular Hemoglobin Concent 33.8g/dl Red Cell Distribution Width 12.5% Platelet Count 31501^3/UL Mean Platelet Volume 9.2fl Neutrophils % 46.0% Lymphocytes % 44.4% Monocytes % 7.4% Eosinophils % 1.4% Basophils % 0.5% Nucleated Red Blood Cells % 0.0/100WBC Neutrophils # (Manual) 2.710^3/ul Lymphocytes # 2.610^3/ul Monocytes # 0.410^3/ul Eosinophils # 0.110^3/ul Basophils # 0.010^3/ul Nucleated Red Blood Cells # 0.010^3/ul Urine Color COLORLESS Urine Clarity CLEAR Urine pH 5.0 Urine Specific [place] 1.003 Urine Ketones NEGATIVEmg/dL Urine Nitrite NEGATIVEmg/dL Urine Bilirubin NEGATIVEmg/dL Urine Urobilinogen NEGATIVEmg/dL Urine Leukocyte Esterase NEGATIVELeu/ul Urine Microscopic RBC 0/HPF Urine Microscopic WBC 0/HPF Urine Hemoglobin 1+mg/dL Urine Glucose NEGATIVEmg/dL Urine Total Protein NEGATIVEmg/dl Sodium Level 144mmol/L Potassium Level 3.5mmol/L Chloride Level 102mmol/L Carbon Dioxide Level 24mmol/L Anion Gap 22 Blood Urea Nitrogen 8mg/dl Creatinine 0.64mg/dl Glucose Level 122mg/dl Calcium Level 9.6mg/dl Total Bilirubin 0.1mg/dl Direct Bilirubin 0.00mg/dl Indirect Bilirubin 0.1mg/dl Aspartate Amino Transf (AST/SGOT) 24IU/L Alanine Aminotransferase (ALT/SGPT) 28IU/L Alkaline Phosphatase 103IU/L Troponin I < 0.012ng/ml Total Protein 8.0g/dl Albumin 4.5g/dl Globulin 3.50g/dl Albumin/Globulin Ratio 1.28 Lipase 97U/L Current Medications Medications (Trade) Dose Ordered Sig/Minoo Route PRN Reason Start Time Stop Time Status Last Admin Dose Admin Sodium Chloride (NS) 1,000 ml @ 1,000 mls/hr Q1H STAT IV 12/14/16 12:46 12/14/16 13:45 DC 12/14/16 13:26 Morphine Sulfate (morphine) 4 mg ONCE STAT IV 12/14/16 12:46 12/14/16 12:48 DC 12/14/16 13:26 Ondansetron HCl (Zofran Inj) 4 mg ONCE STAT IV 12/14/16 12:46 12/14/16 12:48 DC 12/14/16 13:26 Procedures/MDM CT abdomen pelvis shows no acute surgical process per radiology. Patient is a 71-year-old with diabetes who presents with abdominal pain. She has had multiple visits to the emergency department for abdominal pain but I did want to work her up to evaluate for serious etiology. Her laboratory studies are basically normal. CT scan of the abdomen pelvis shows no signs of obstruction or surgical process at this time. I doubt appendicitis, cholecystitis, pancreatitis, or bowel obstruction. The patient will need to follow-up closely with a primary doctor within 24-48 hours. She will be given a prescription for ibuprofen for pain and can return if symptoms worsen. She was given copies of her laboratory studies and CT scan report prior to discharge. Departure Diagnosis: Primary Impression: Abdominal pain Abdominal location: left lower quadrant Qualified Code: R10.32 - Left lower quadrant pain Condition: Fair Patient Instructions: Abdominal Pain Referrals: GREGORIO MABRY (PCP) Additional Instructions: Llame al doctor MAANA y caitlin lori JARVIS PARA DENTRO DE 1-2 SANCHES.Dgale a la secretaria que nosotros le instruimos hacer esta jarvis.Avise o llame si dwyer condicin se empeora antes de la jarvis. Regresa aqui si peor o no mejor. MEG TAVAREZ MD Dec 14, 2016 15:14
[2016-12-14 16:00] VITALS: BP 152/76; PULSE 70; RESP 17; TEMP 98
== END 2016-12-14 16:00 | disposition home or self-care (01) ==
LOC: E/R 10:21
DX: R10.32 Left lower quadrant pain (principal); E11.9 Type 2 diabetes mellitus without complications; I10 Essential (primary) hypertension; Z79.84 Long term (current) use of oral hypoglycemic drugs
CPT/HCPCS: 36415; 74176; 80053; 81001; 83690; 84484; 85025; 93005; 96374; 96375; 99285; J2270; J2405; J7030

== ENCOUNTER 2017-07-11 09:36 | Emergency (ER) | END 2017-07-11 16:21 | disposition home or self-care (01) ==